=== PATIENT | male | born 1955 | race African-American/Black ===

== ENCOUNTER 2019-07-14 18:13 | Inpatient (IN) ==
[2019-07-14] MEDS ORDERED: NITROGLYCERIN 2% OINT 1 INCH/GM PACK TOP STA (18:41)
[2019-07-14] MEDS ORDERED: ASPIRIN 325 MG TABLET PO STA (18:42)
[2019-07-14 18:59] LABS: Basophils % 0.4 % (0.0-0.8); Eosinophils # 0.2 10*3/uL (0.0-0.87); Eosinophils % 2.7 % (0.00-10.9); Hematocrit 40.6 VOL% (42.0-52.0); Hemoglobin 14.2 GM/DL (14.0-18.0); Immature Granulocytes % 0.2 %; Immature Granulocytes Absolute 0.01 #; Lymphocytes # 1.8 10*3/uL (1.4-4.0); Lymphocytes % 33.6 % (21.2-54.2); Mean Corpuscular Volume 87.7 FL (87-102); Mean Platelet Volume 9.6 FL (9.6-12.0); Neutrophils % 55.1 % (38.7-73.9); Platelet Count 276 T/CUMM (130-400); Red Blood Count 4.63 MC/CUMM (3.8-5.5); Red Cell Distribution Width 12.9 % (9.3-17.3); White Blood Count 5.5 T/CUMM (4-12)
[2019-07-14 19:18] LABS: Bilirubin,Total 0.5 MG/DL (0.2-1.0); Calcium 9.3 MG/DL (8.5-10.1); Osmolality,Calculated 282.3 MOS/KG (273-304); Total Protein 6.9 G/DL (6.4-8.3)
[2019-07-14 21:33] LABS: Apearance,Urine CLEAR (Clear); Bilirubin,Urine Negative (Negative); Blood, Urine Small mg/dL (Negative); Glucose,Urine (UA) Negative (Negative); Ketones,Urine Negative (Negative); Mucus,Urine Occasional /LPF (Occasional); Nitrite,Urine Negative (Negative); Protein,Urine Negative; RBC,Urine 3 /HPF (0-4); Urine Color Yellow (Yellow); Urine Specific Gravity 1.016 (1.001-1.035); Urine Urobilinogen < 2.0 EU/DL (0.2-1.0)
[2019-07-14] MEDS ORDERED: NITROGLYCERIN SL 0.4 MG TABLET SL PRN (21:55)
[2019-07-14] MEDS ORDERED: traZODone 50 MG TABLET PO PRN (21:55)
[2019-07-14] MEDS ORDERED: MORPHINE 4 MG/1 ML VIAL IV PRN (21:55)
[2019-07-14] MEDS ORDERED: DOCUSATE SODIUM 100 MG CAPSULE PO PRN (21:55)
[2019-07-14] MEDS ORDERED: ONDANSETRON 4 MG/2 ML VIAL IV PRN (21:55)
[2019-07-14] MEDS ORDERED: ACETAMINOPHEN 325 MG TABLET PO PRN (21:55)
[2019-07-14] MEDS ORDERED: ENOXAPARIN 40 MG/0.4 ML SYRINGE SUBCUT SCH (22:00)
[2019-07-14] MEDS ORDERED: hydrALAZINE 20 MG/1 ML VIAL IV PRN (22:40)
[2019-07-14] MEDS: SIMVASTATIN 20 MG TABLET PO SCH (23:05)
[2019-07-14] MEDS: ENOXAPARIN 120 MG/0.8 ML SYRINGE SUBCUT SCH (23:06)
[2019-07-14] MEDS: TERAZOSIN 5 MG CAPSULE PO SCH (23:06)
[2019-07-15] MEDS ORDERED: DEXTROSE 50% 25 GM/50 ML VIAL IV PRN ×2 (01:14→15:33)
[2019-07-15] MEDS ORDERED: GLUCAGON 1 MG VIAL IM PRN (01:14)
[2019-07-15 01:20] LABS: Basophils % 0.4 % (0.0-0.8); Eosinophils # 0.3 10*3/uL (0.0-0.87); Eosinophils % 4.5 % (0.00-10.9); Hematocrit 37.4 VOL% (42.0-52.0); Hemoglobin 13.2 GM/DL (14.0-18.0); Immature Granulocytes % 0.4 %; Immature Granulocytes Absolute 0.02 #; Lymphocytes # 2.2 10*3/uL (1.4-4.0); Mean Corpuscular HGB Conc 35.3 GM/DL (32-36); Mean Corpuscular Volume 88.6 FL (87-102); Mean Platelet Volume 9.5 FL (9.6-12.0); Monocytes % 8.9 % (1.7-12.7); Neutrophils % 46.8 % (38.7-73.9); Platelet Count 243 T/CUMM (130-400); Red Blood Count 4.22 MC/CUMM (3.8-5.5); Red Cell Distribution Width 12.9 % (9.3-17.3); White Blood Count 5.5 T/CUMM (4-12)
[2019-07-15 01:51] LABS: Calcium 8.5 MG/DL (8.5-10.1); Osmolality,Calculated 281.4 MOS/KG (273-304); Thyroid Stimulating Hormone 6.31 uIU/ml (0.358-3.74); VLDL CHOLESTEROL 22.6 MG/DL
[2019-07-15] MEDS: INSULIN REGULAR 100 UNIT/ML SUBCUT SCH ×5 (01:58→20:52)
[2019-07-15] MEDS ORDERED: METOPROLOL SUCCINATE XL 25 MG TABLET PO ONE (10:15)
[2019-07-15] MEDS ORDERED: POTASSIUM CHLORIDE 20 MEQ/15 ML UDCUP PO ONE (11:08)
[2019-07-15] MEDS ORDERED: PANTOPRAZOLE 40 MG TABLET PO ONE (11:10)
[2019-07-15] MEDS: hydroCHLOROthiazide 25 MG TABLET PO SCH (11:12)
[2019-07-15] MEDS: ENOXAPARIN 120 MG/0.8 ML SYRINGE SUBCUT SCH (11:13)
[2019-07-15] MEDS: ASPIRIN EC 81 MG TABLET PO SCH (11:19)
[2019-07-15] MEDS: METOPROLOL SUCCINATE XL 25 MG TABLET PO SCH (11:19)
[2019-07-15] MEDS: amLODIPine 10 MG TABLET PO SCH (11:19)
[2019-07-15] MEDS ORDERED: DIAZEPAM 5 MG TABLET PO ONE (12:42)
[2019-07-15] MEDS ORDERED: diphenhydrAMINE CAP 25 MG CAPSULE PO ONE (12:42)
[2019-07-15] MEDS ORDERED: POTASSIUM CHLORIDE RIDER 10 MEQ in PREMIX 1 EACH IV PRN (12:42)
[2019-07-15] MEDS ORDERED: MAGNESIUM SULF RIDER 2 GM in PREMIX 1 EACH IV PRN (12:42)
[2019-07-15] MEDS ORDERED: SODIUM CHLORIDE 0.9% 1,000 ML IV SCH (13:00)
[2019-07-15] MEDS ORDERED: LIDOCAINE 1% 20 ML VIAL ONE (14:37)
[2019-07-15] MEDS ORDERED: MIDAZOLAM 2 MG/2 ML VIAL ONE (14:38)
[2019-07-15] MEDS ORDERED: fentaNYL 100 MCG/2 ML VIAL ONE (14:38)
[2019-07-15] MEDS: SIMVASTATIN 20 MG TABLET PO SCH (20:52)
[2019-07-15] MEDS: TERAZOSIN 5 MG CAPSULE PO SCH (20:52)
[2019-07-16 03:44] LABS: Basophils % 0.6 % (0.0-0.8); Eosinophils # 0.2 10*3/uL (0.0-0.87); Hematocrit 38.5 VOL% (42.0-52.0); Hemoglobin 12.7 GM/DL (14.0-18.0); Immature Granulocytes % 0.4 %; Immature Granulocytes Absolute 0.02 #; Lymphocytes # 1.7 10*3/uL (1.4-4.0); Lymphocytes % 32.3 % (21.2-54.2); Mean Corpuscular Volume 91.2 FL (87-102); Monocytes % 8.5 % (1.7-12.7); Neutrophils % 54.2 % (38.7-73.9); Platelet Count 239 T/CUMM (130-400); Red Blood Count 4.22 MC/CUMM (3.8-5.5); Red Cell Distribution Width 13.2 % (9.3-17.3); White Blood Count 5.3 T/CUMM (4-12)
[2019-07-16 04:12] LABS: Calcium 8.1 MG/DL (8.5-10.1); Osmolality,Calculated 285.1 MOS/KG (273-304)
[2019-07-16] MEDS: LEVOTHYROXINE 25 MCG TABLET PO SCH (06:30)
[2019-07-16] MEDS: INSULIN REGULAR 100 UNIT/ML SUBCUT SCH ×4 (08:01→21:49)
[2019-07-16] MEDS: ASPIRIN EC 81 MG TABLET PO SCH (08:57)
[2019-07-16] MEDS: amLODIPine 10 MG TABLET PO SCH (08:57)
[2019-07-16] MEDS: hydroCHLOROthiazide 25 MG TABLET PO SCH (08:57)
[2019-07-16] MEDS: METOPROLOL SUCCINATE XL 25 MG TABLET PO SCH (08:57)
[2019-07-16] MEDS ORDERED: FUROSEMIDE 40 MG/4 ML VIAL IV ONE (09:41)
[2019-07-16] MEDS ORDERED: hydroCHLOROthiazide 25 MG TABLET PO SCH (09:42)
[2019-07-16] MEDS: ISOSORBIDE MONONITRATE 30 MG TABLET PO SCH (11:03)
[2019-07-16] MEDS: FUROSEMIDE 40 MG/4 ML VIAL IV SCH (15:52)
[2019-07-16] MEDS: SIMVASTATIN 20 MG TABLET PO SCH (21:49)
[2019-07-16] MEDS: TERAZOSIN 5 MG CAPSULE PO SCH (21:49)
[2019-07-17] MEDS: LEVOTHYROXINE 25 MCG TABLET PO SCH (06:14)
[2019-07-17] MEDS: INSULIN REGULAR 100 UNIT/ML SUBCUT SCH (06:54)
[2019-07-17] MEDS: ISOSORBIDE MONONITRATE 30 MG TABLET PO SCH (09:01)
[2019-07-17] MEDS: amLODIPine 10 MG TABLET PO SCH (09:01)
[2019-07-17] MEDS: METOPROLOL SUCCINATE XL 25 MG TABLET PO SCH (09:01)
[2019-07-17] MEDS: ASPIRIN EC 81 MG TABLET PO SCH (09:01)
[2019-07-17] MEDS: FUROSEMIDE 40 MG/4 ML VIAL IV SCH (09:02)
[2019-07-17 12:32] VITALS: BP 121/71
== END 2019-07-17 14:02 | disposition home or self-care (01) | DRG 287 ==
LOC: N.ED 18:13 → N.EDINP 18:13 → N.TELES 21:02
PROVIDERS: ADMIT Internal Medicine; ATTEND Internal Medicine
PROC: CLCCHCL (ICD-10-PCS; 2019-07-15 14:45)